=== PATIENT | female | born 1975 | race Caucasian/White ===

== ENCOUNTER 2022-08-24 20:11 | Emergency (ER) | payer SELFPAY ==
[2022-08-24] MEDS ORDERED: MORPHINE 4 MG/ML SYR ONE ×2 (21:03→22:51)
[2022-08-24] MEDS ORDERED: NA CHLORIDE 0.9% 1,000 ML ONE (21:03)
[2022-08-24] MEDS ORDERED: ONDANSETRON 4 MG/2 ML VIAL ONE ×2 (21:03→22:51)
[2022-08-24 21:13] LABS: Urine Blood 2+ (Negative); Urine Glucose Negative (Negative); Urine Protein Negative (Negative); Urine Specific Gravity 1.015 (1.005-1.030); Urine pH 6.5 (5.0-7.0)
[2022-08-24 21:23] LABS: Absolute Lymphocytes (CBC) 1.1 K/uL (0.7-4.9); Hematocrit 36.4 % (36.0-45.0); Lymphocytes % 9.8 % (15.3-44.8); MPV 9.1 fL (7.6-11.3); RBC Red Blood Cell Count 4.39 M/uL (3.86-4.86)
[2022-08-24 21:27] LABS: Urine Specific Gravity/Preg 1.015 (1.005-1.030)
[2022-08-24 21:36] LABS: BUN Blood Urea Nitrogen 12 mg/dL (7-18); Bicarbonate 25 mmol/L (21-32); Glomerular Filtration Rate 77 ml/min (=/>90); Glucose Level 115 mg/dL (74-106); Potassium 3.6 mmol/L (3.5-5.1); Sodium Level 137 mmol/L (136-145)
--- NOTE | 2022-08-24 21:46 | RAD REPORT ---
EXAM DESCRIPTION: US - Transvaginal Study Probe - 08/24/2022 9:36 pm CLINICAL HISTORY: VAGINAL BLEEDING Pelvic pain. COMPARISON: No comparisons FINDINGS: The uterus is normal in size, shape and echotexture. The uterus measures 7.5 x 5.5 x 4.7 c m. 2.6 x 2.7 cm calcified fibroid suspected likely submucosal location in the fundal region. The endometrial stripe measures 5 mm. Both ovaries nonvisualized probably due to excessive bowel gas shadowing. Both adnexa are within normal limits. No significant pelvic ascites. IMPRESSION: Probable calcified fibroid submucosal fundal location. Both ovaries not well seen sonographically due to bowel gas.
[2022-08-24 22:37] LABS: ALT/SGPT 27 U/L (13-56); AST/SGOT 16 U/L (15-37); Alkaline Phosphatase 77 U/L (45-117); Bilirubin Total 0.3 mg/dL (0.2-1.0); Lipase 188 U/L (73-393); Protein, Total 8.2 g/dL (6.4-8.2)
[2022-08-24 22:40] LABS: Bilirubin Direct < 0.1 mg/dL (0-0.2)
--- NOTE | 2022-08-24 23:26 | EDPHYS ---
Physician Documentation [facility] Name: Shamika Alejandra Age: 46 yrs Sex: Female : 1975 Arrival Date: 08/24/2022 Time: 20:12 Bed 2 Private MD: PHILLY Physician Paulino Schneider HPI: 08/24 22:17 This 46 yrs old Female presents to ER via Ambulatory with complaints of andreas Vaginal Bleeding, Abdominal Pain. 22:17 The patient presents with vaginal bleeding that is moderate. Onset: The andreas symptoms/episode began/occurred yesterday. Modifying factors: The symptoms are alleviated by nothing, the symptoms are aggravated by nothing. Associated signs and symptoms: Pertinent positives: cramping. Severity of symptoms: At their worst the symptoms were mild, moderate, in the emergency department the symptoms are unchanged. The patient is sexually active, reportedly has a single partner. The patient has experienced similar episodes in the past, multiple times. 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 - Social history:: Smoking status: Patient reports the use of cigarette tobacco products, denies chronic smoking, but will smoke occasionally. - Family history:: not pertinent. ROS: 22:17 Constitutional: Negative for fever, chills, and weight loss, Eyes: Negative for injury, andreas pain, redness, and discharge, ENT: Negative for injury, pain, and discharge, Neck: Negative for injury, pain, and swelling, Cardiovascular: Negative for chest pain, palpitations, and edema, Respiratory: Negative for shortness of breath, cough, wheezing, and pleuritic chest pain, Back: Negative for injury and pain, : Negative for injury, bleeding, discharge, and swelling, MS/Extremity: Negative for injury and deformity, Skin: Negative for injury, rash, and discoloration, Neuro: Negative for headache, weakness, numbness, tingling, and seizure, Psych: Negative for depression, anxiety, suicide ideation, homicidal ideation, and hallucinations, Allergy/Immunology: Negative for hives, rash, and allergies, Endocrine: Negative for neck swelling, polydipsia, polyuria, polyphagia, and marked weight changes, Hematologic/Lymphatic: Negative for swollen nodes, abnormal bleeding, and unusual bruising. 22:17 Abdomen/GI: Positive for abdominal pain, abdominal cramps, abdominal distension, of the right upper quadrant, left upper quadrant, right lower quadrant and left lower quadrant. Exam: 22:17 Constitutional: This is a well developed, well nourished patient who is awake, alert, andreas and in no acute distress. Head/Face: Normocephalic, atraumatic. Eyes: Pupils equal round and reactive to light, extra-ocular motions intact. Lids and lashes normal. Conjunctiva and sclera are non-icteric and not injected. Cornea within normal limits. Periorbital areas with no swelling, redness, or edema. ENT: Nares patent. No nasal discharge, no septal abnormalities noted. Tympanic membranes are normal and external auditory canals are clear. Oropharynx with no redness, swelling, or masses, exudates, or evidence of obstruction, uvula midline. Mucous membranes moist. Neck: Trachea midline, no thyromegaly or masses palpated, and no cervical lymphadenopathy. Supple, full range of motion without nuchal rigidity, or vertebral point tenderness. No Meningismus. Chest/axilla: Normal chest wall appearance and motion. Nontender with no deformity. No lesions are appreciated. Cardiovascular: Regular rate and rhythm with a normal S1 and S2. No gallops, murmurs, or rubs. Normal PMI, no JVD. No pulse deficits. Respiratory: Lungs have equal breath sounds bilaterally, clear to auscultation and percussion. No rales, rhonchi or wheezes noted. No increased work of breathing, no retractions or nasal flaring. Back: No spinal tenderness. No costovertebral tenderness. Full range of motion. Female : Normal external genitalia. Skin: Warm, dry with normal turgor. Normal color with no rashes, no lesions, and no evidence of cellulitis. MS/ Extremity: Pulses equal, no cyanosis. Neurovascular intact. Full, normal range of motion. Neuro: Awake and alert, GCS 15, oriented to person, place, time, and situation. Cranial nerves II-XII grossly intact. Motor strength 5/5 in all extremities. Sensory grossly intact. Cerebellar exam normal. Normal gait. Psych: Awake, alert, with orientation to person, place and time. Behavior, mood, and affect are within normal limits. 22:17 Abdomen/GI: Inspection: distension, that is mild, that is moderate, Bowel sounds: normal, Palpation: mild abdominal tenderness, in the posterior aspect of right lateral abdomen, posterior aspect of left lateral abdomen, right lower quadrant and left lower quadrant, Liver: no appreciated palpable abnormalities, Hernia: not appreciated. Vital Signs: 20:29 BP 157 / 100; Pulse 105; Resp 20; Temp 99.5; Pulse Ox 100% ; Weight 81.65 kg; Height 5 kr3 ft. 3 in. (160.02 cm); Pain 6/10; 22:09 BP 127 / 74; Pulse 95; Resp 18; Pulse Ox 97% on R/A; as6 23:01 BP 132 / 87; Pulse 89; Resp 20 S; Pulse Ox 97% on R/A; as6 20:29 Body Mass Index 31.89 (81.65 kg, 160.02 cm) kr3 MDM: 20:34 Patient medically screened. [facility] 22:21 Differential diagnosis: kidney stone, menometrorrhagia, menorrhea, nonspecific andreas abdominal pain, ovarian cyst, uterine fibroids, urinary tract infection. Data reviewed: vital signs, nurses notes, lab test result(s), radiologic studies, CT scan, ultrasound. Consideration of Admission/Observation Patient was admitted/placed on observation. Escalation of care including admission/observation considered. I considered the following discharge prescriptions or medication management in the emergency department Medications were administered in the Emergency Department. See MAR. Independent interpretation of the following test(s) in the Emergency Department Radiology Department Ultrasound: My interpretation is calcified fibroid. Test considered but Not performed: EKG: no ekg needed. Care significantly affected by the following chronic conditions: thyroid. 08/24 20:34 Order name: Abo/rh Typing; Complete Time: 21:48 andreas 08/24 20:34 Order name: Basic Metabolic Panel; Complete Time: 23:23 andreas 08/24 20:34 Order name: CBC with Diff; Complete Time: 21:48 andreas 08/24 21:14 Order name: Urine --Ancillary (enter results); Complete Time: 21:48 ds4 08/24 21:14 Order name: Urine Dipstick-Ancillary; Complete Time: 21:25 EDMS 08/24 20:34 Order name: US Transvaginal Study (Probe); Complete Time: 21:48 [facility] 08/24 21:48 Order name: CT Abd/Pelvis - IV Contrast Only [facility] 08/24 22:25 Order name: Liver (Hepatic) Function; Complete Time: 23:23 [facility] 08/24 22:25 Order name: Lipase; Complete Time: 23:23 EDME 08/24 20:34 Order name: IV Saline Lock; Complete Time: 21:13 [facility] 08/24 20:34 Order name: Labs collected and sent; Complete Time: 21:13 [facility] 08/24 20:34 Order name: NPO; Complete Time: 21:15 [facility] 08/24 20:34 Order name: Urine Dipstick-Ancillary (obtain specimen); Complete Time: 21:13 [facility] 08/24 20:34 Order name: Urine Test (obtain specimen); Complete Time: 21:13 [facility] Administered Medications: 21:15 Drug: NS 0.9% 1000 ml Route: IV; Rate: 1 bolus; Site: right forearm; as6 23:36 Follow up: Response: No adverse reaction; IV Status: Completed infusion; IV Intake: as6 1000ml 21:15 Drug: morphine 4 mg Route: IVP; Infused Over: 4 mins; Site: right forearm; as6 23:36 Follow up: Response: No adverse reaction as6 21:15 Drug: Zofran (Ondansetron) 4 mg Route: IVP; Site: right forearm; as6 23:36 Follow up: Response: No adverse reaction as6 22:51 Drug: morphine 4 mg Route: IVP; Infused Over: 4 mins; Site: right forearm; as6 23:36 Follow up: Response: No adverse reaction as6 22:51 Drug: Zofran (Ondansetron) 4 mg Route: IVP; Site: right forearm; as6 23:36 Follow up: Response: No adverse reaction as6 23:38 Drug: Ketorolac 30 mg Route: IVP; Site: right forearm; as6 23:42 Follow up: Response: No adverse reaction as6 Disposition Summary: 08/24/22 23:25 Discharge Ordered Location: Home andreas Problem: new andreas Symptoms: have improved andreas Condition: Stable andreas Diagnosis - Abdominal pain, unspecified andreas - Dysmenorrhea, unspecified andreas - Elevated white blood cell count andreas - Diverticulosis of intestine, part unspecified, without perforation or abscess andreas without bleeding - Leiomyoma of uterus, unspecified andreas Followup: andreas - With: Private Physician - When: 2 - 3 days - Reason: Recheck today's complaints, Continuance of care, Re-evaluation by your physician Followup: andreas - With: - When: 2 - 3 days - Reason: Recheck today's complaints, Re-evaluation by your physician Discharge Instructions: - Discharge Summary Sheet andreas - Abdominal Pain, Adult andreas - Dysmenorrhea andreas - Abdominal Pain, Adult, [id number] andreas - Diverticulosis andreas - Uterine Fibroids andreas - Dysmenorrhea, [id number] andreas - Uterine Fibroids, [id number] [facility] Forms: - Medication Reconciliation Form andreas - Thank You Letter andreas - Antibiotic Education andreas - Prescription Opioid Use andreas - Family Work Release rv1 - Work release form rv1 Prescriptions: - Ibuprofen 600 mg Oral Tablet - take 1 tablet by ORAL route every 6 hours As needed take with food; 20 tablet; [facility] Refills: 0, Product Selection Permitted - Zofran 4 mg Oral Tablet - take 1 tablet by ORAL route every 12 hours As needed; 20 tablet; Refills: 0, andreas Product Selection Permitted - dicyclomine 20 mg Oral Tablet - take 1 tablet by ORAL route 4 times per day; 28 tablet; Refills: 0, Product andreas Selection Permitted - Tylenol-Codeine #3 300 mg-30 mg Oral - take 2 tablet by ORAL route every 6 hours; 18 tablet; Refills: 0, Product andreas Selection Permitted Signatures: Dispatcher [employer] EDMS Paulino Schneider MD MD cha Slawson, Ashby RN RN as6 Maria G Parker RN RN kr3 Sydnee slaughter RN RN pf1 Corrections: (The following items were deleted from the chart) 22:25 22:17 HEPATIC FUNCTION+C.LAB.BRZ ordered. EDMS EDMS 22:25 22:17 LIPASE+C.LAB.BRZ ordered. EDMS EDMS
--- NOTE | 2022-08-24 23:26 | ER ---
Nurse's Notes [facility] Name: Shamika Alejandra Age: 46 yrs Sex: Female : 1975 Arrival Date: 08/24/2022 Time: 20:12 Bed 2 Private MD: Diagnosis: Abdominal pain, unspecified;Dysmenorrhea, unspecified;Elevated white blood cell count;Diverticulosis of intestine, part unspecified, without perforation or abscess without bleeding;Leiomyoma of uterus, unspecified Presentation: 08/24 20:29 Chief complaint: Patient states: started period yesterday and was normal woke up this kr3 morning and the flow was heavy with softball size clots passing. I also had head trauma 7 yrs ago and the area where the trauma was is hurting really bad. Coronavirus screen: Vaccine status: Patient reports being unvaccinated. Ebola Screen: Patient denies travel to an Ebola-affected area in the 21 days before illness onset. Initial Sepsis Screen: Does the patient meet any 2 criteria? No. Patient's initial sepsis screen is negative. Does the patient have a suspected source of infection? No. Patient's initial sepsis screen is negative. Risk Assessment: Do you want to hurt yourself or someone else? Patient reports no desire to harm self or others. Onset of symptoms was August 24, 2022. 20:29 Method Of Arrival: Ambulatory kr3 20:29 Acuity: AMINATA 3 kr3 Triage Assessment: 20:37 General: Appears distressed, uncomfortable, Behavior is cooperative, appropriate for kr3 age, crying. Pain: Complains of pain in abdomen. 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 - Social history:: Smoking status: Patient reports the use of cigarette tobacco products, denies chronic smoking, but will smoke occasionally. - Family history:: not pertinent. Screenin:03 [facility] ED Fall Risk Assessment (Adult) Score/Fall Risk Level 0 - 2 = Low Risk. Abuse as6 screen: Denies threats or abuse. Denies injuries from another. Nutritional screening: No deficits noted. Tuberculosis screening: No symptoms or risk factors identified. Assessment: 21:00 General: Appears uncomfortable, Behavior is cooperative, restless. Pain: Complains of as6 pain in posterior aspect of left lateral abdomen and posterior aspect of right lateral abdomen and left lower quadrant and right lower quadrant and left upper quadrant and right upper quadrant and abdomen. Neuro: Level of Consciousness is awake, alert, obeys commands, Oriented to person, place, time, situation. Cardiovascular: Capillary refill < 3 seconds Patient's skin is warm and dry. Respiratory: Respiratory effort is even, unlabored, Respiratory pattern is regular, symmetrical. GI: Reports lower abdominal pain, upper abdominal pain, nausea. : Reports vaginal bleeding that is bright red, with clots, heavy flow. Derm: Skin is intact, is healthy with good turgor. 23:03 General: pt report pain is slightly improving . as6 Vital Signs: 20:29 BP 157 / 100; Pulse 105; Resp 20; Temp 99.5; Pulse Ox 100% ; Weight 81.65 kg; Height 5 kr3 ft. 3 in. (160.02 cm); Pain 6/10; 22:09 BP 127 / 74; Pulse 95; Resp 18; Pulse Ox 97% on R/A; as6 23:01 BP 132 / 87; Pulse 89; Resp 20 S; Pulse Ox 97% on R/A; as6 20:29 Body Mass Index 31.89 (81.65 kg, 160.02 cm) kr3 ED Course: 20:12 Patient arrived in ED. am2 20:13 Paulino Schneider MD is Attending Physician. [facility] 20:34 Triage completed. kr3 20:37 Patient placed in an exam room, on a stretcher. kr3 20:40 Inserted saline lock: 20 gauge in right forearm, using aseptic technique. Blood as6 collected. 20:43 Lukas Ahn, CARIE is Primary Nurse. as6 21:38 US Transvaginal Study (Probe) In Process Unspecified. EDMS 22:53 CT Abd/Pelvis - IV Contrast Only In Process Unspecified. EDMS 23:03 Placed in gown. Bed in low position. Call light in reach. Side rails up X 1. Adult w/ as6 patient. 23:19 Arm band placed on. as6 23:24 Lakia Bella MD is Referral Physician. andreas 23:42 No provider procedures requiring assistance completed. IV discontinued, intact, as6 bleeding controlled, No redness/swelling at site. Pressure dressing applied. Administered Medications: 21:15 Drug: NS 0.9% 1000 ml Route: IV; Rate: 1 bolus; Site: right forearm; as6 23:36 Follow up: Response: No adverse reaction; IV Status: Completed infusion; IV Intake: as6 1000ml 21:15 Drug: morphine 4 mg Route: IVP; Infused Over: 4 mins; Site: right forearm; as6 23:36 Follow up: Response: No adverse reaction as6 21:15 Drug: Zofran (Ondansetron) 4 mg Route: IVP; Site: right forearm; as6 23:36 Follow up: Response: No adverse reaction as6 22:51 Drug: morphine 4 mg Route: IVP; Infused Over: 4 mins; Site: right forearm; as6 23:36 Follow up: Response: No adverse reaction as6 22:51 Drug: Zofran (Ondansetron) 4 mg Route: IVP; Site: right forearm; as6 23:36 Follow up: Response: No adverse reaction as6 23:38 Drug: Ketorolac 30 mg Route: IVP; Site: right forearm; as6 23:42 Follow up: Response: No adverse reaction as6 Medication: 23:42 VIS not applicable for this client. as6 Intake: 23:36 IV: 1000ml; Total: 1000ml. as6 Outcome: 23:25 Discharge ordered by . [facility] 23:43 Discharged to home ambulatory, with significant other. as6 23:43 Condition: stable 23:43 Discharge instructions given to patient, Instructed on discharge instructions, follow up and referral plans. medication usage, Demonstrated understanding of instructions, follow-up care, medications, Prescriptions given X 4. 23:46 Patient left the ED. as6 Signatures: Dispatcher [employer] Paulino Queen MD MD cha Moreno, Amanda am2 Lukas Ahn, CARIE RN as6 Maria G Parker RN RN kr3
[2022-08-24] MEDS ORDERED: KETOROLAC 30 MG/ML INJ ONE (23:31)
[2022-08-25 00:21] VITALS: TEMP 99.5
[2022-08-25 00:22] VITALS: O2SAT 97
[2022-08-25 00:23] VITALS: BP 132/87
--- NOTE | 2022-08-25 14:44 | RAD REPORT ---
EXAM DESCRIPTION: CT Abdomen and Pelvis With Intravenous Contrast CLINICAL HISTORY: The patient is 46 years old and is Female; Abdominal pain, acute, nonlocalized TECHNIQUE: Axial computed tomography images of the abdomen and pelvis with intravenous contrast. S agittal and coronal reformatted images were created and reviewed. This CT exam was performed using one or more of the following dose reduction techniques: automated exposure control, adjustment of t he mA and/or kV according to patient size, and/or use of iterative reconstruction technique. DLP: 2297 mGy*cm COMPARISON: None. FINDINGS: LUNG BASES: Lung bases are clear. HEART: Visualized heart is normal. MEDIASTINUM: Moderate hiatal hernia. ABDOMEN: LIVER: Hepatic steatosis. Hepatic steatosis. GALLBLADDER AND BILE DUCTS: Unremarkable. No calcified stones. No ductal dilation. PANCREAS: Unremarkable. No mass. No ductal dilation. SPLEEN: Unremarkable. No splenomegaly. ADRENALS: Unremarkable. No mass. KIDNEYS AND URETERS: Left renal cyst measuring 4.5 cm. No follow-up recommended. No hydronephrosis. STOMACH AND BOWEL: Scattered proximal colonic diverticulosis. No acute diverticulitis. No obstruction. PELVIS: APPENDIX: The appendix is seen and is within normal limits. BLADDER: Unremarkable. No mass. REPRODUCTIVE: Unremarkable as visualized. ABDOMEN and PELVIS: INTRAPERITONEAL SPACE: Unremarkable. No free air. No significant fluid collection. BONES/JOINTS: No acute fracture. No dislocation. SOFT TISSUES: Fat-containing umbilical hernia. VASCULATURE: Unremarkable. No abdominal aortic aneurysm. LYMPH NODES: Unremarkable. No enlarged lymph nodes. IMPRESSION: 1. No acute abdominal or pelvic abnormality. 2. Hepatic steatosis. 3. Scattered proximal colonic diverticulosis. No acute diverticulitis. Electronically signed by: Chace Etienne DO 08/24/2022 11:07 PM ENVIRONMENTAL SAMPLING TECHNICIAN Due to temporary technical issues with the PACS/Fluency reporting system, reports are being signed by the in house radiologists without review as a courtesy to insure prompt reporting. The interpreting radiologist is fully responsible for the content of the report.
== END 2022-08-24 23:46 | disposition home or self-care (01) ==
LOC: ER 20:11
DX: R10.9 Unspecified abdominal pain (principal); N94.6 Dysmenorrhea, unspecified; D72.829 Elevated white blood cell count, unspecified; K57.30 Diverticulosis of large intestine without perforation or abscess without bleeding; D25.9 Leiomyoma of uterus, unspecified
CPT/HCPCS: 36415; 74177; 76830; 80048; 80076; 81003; 81025; 83690; 85025; 86900; 86901; 96361; 96374; 96375; 99284; J2405; J7030; Q9967

== ENCOUNTER 2024-11-05 07:05 | Emergency (ER) | payer BC, SELFPAY ==
--- OUTSIDE RECORDS SUMMARY | 2024-11-05 07:08 | XMS REPORT | Continuity of Care Document ---
Author Name Unknown Address [address] [facility] [place]. [address] [place] [address] [facility] Address [address] [facility] [place]. [address] [place] [address] Care Team Providers Care Audio Engineer Name Role Phone Keon Fabianolyubov Primary Care Physician [phone] [email or web address] Attending Clinician Unavaila ble Radiology Attending Clinician Unavailable RADIOLOGY Attending Clinician Unavailable [email or web address]_Kadiyala_S Admitting Clinician Unavaila ble Allergies, Adverse Reactions, Alerts Allergy Name Allergy Type Status Severity Reaction(s) Onset Date Inactive Date Treating Clinician Comments Source NO KNOWN ALLERGIE S Drug Class Active Univers [facility] Social History Social Habit Start Date Stop Date Quantity Comments Source Sex Assigned At 1975 00:00:00 1975 00:00:00 [facility] Smoking Status Start Date Stop Date Source Unknown if ever smoked [facility] Procedures Procedure Date / Time Performed Performing Clinician Source US ABDOMEN COMPLETE 2021-12-11 18:09:00 Requisition, P aper [facility] US PELVIS COMPLETE WITH TRANSVAGINAL 2021-12-11 17:30:00 Requisition, Paper [facility] Encounters Start Date/Time End Date/Time Encounter Type Admission Type Attending Clinicians Care Facility Care Department Encounter ID Source 2024-06-10 14:05:42 2024-06-10 14:05:42 Outpatient [facility] [id number] Rafael Faith 2023-05-15 00:00:00 2023-05-15 00:00:00 Outpatient GC_GCBZW_Ka diyala_S [facility] [id number] [facility] 2023-03-04 13:39:18 2023-03-04 13:39:18 Outpatient [facility] [id number] Rafael Faith 2022-12-04 08:03:56 2022-12-04 08:03:56 Outpatient [facility] [id number] Rafael Faith 2022-11-05 08:53:20 2022-11-05 08:53:20 Outpatient [facility] [id number] Rafael Faith 2021-12-11 11:37:46 2021-12-11 23:59:00 Hospital Encounter Radiology [facility] [id number] [facility] 2021-12-11 11:37:46 2021-12-11 23:59:00 Outpatient R RADIOLOGY [facility] [id number] [facility] 2021-12-11 11:25:00 2021-12-11 11:36:00 Hospital Encounter Radiology [facility] [id number] [facility] Results Test Description Test Time Test Comments Results Result Co mments Source FOLLICLE STIM [id number] 09:29:38* Test Item Value Reference Range Interpretation Comme [facility] FOLLICLE STIM HORMONE (test code = 2700) 3.8 IU/L SEE BELOW EXPECTED VALUES FOR FSH FOR FEMALES >17 YEARS FOLLICULAR 3.5-12.5 IU/L MID-CYCLE PEAK 4.7-21.5 IU/L LUTEAL PHASE 1.7-7.7 IU/L POSTMENOPAUSAL 25.8-134.8 IU/L [id number] 09:29:38* Test Item Value Reference Range Interpretation Comme [facility] FERRITIN (test code = 2075) 21 NG/ML 13-200 VITAMIN B 12 AND FOLIC [id number] 09:29:38* Test Item Value Reference Range Interpretation Comme nts VITAMIN B-12 (test code = 2840) 336 PG/ML 200-950 FOLIC ACID (test code = 2695) 13.4 UG/L SEE BELOW INTERPRETI VE RANGES DEFICIENCY . . . . . . . . . . . . . . . UG/L <4.0 POSSIBLE DEFICIENCY. . . . . . . . . . . UG/L 4.0-5.9 SUFFICIENT . . . . . . . . . . . . . . . UG/L >=6.0 LIPID [id number] 06:50:13* Test Item Value Reference Range Interpretation Comme nts CHOLESTEROL (test code = 2210) 175 MG/DL <200 TRIGLYCERIDES (test code = 2232) 108 MG/DL <150 HDL CHOLESTEROL (test code = 0) 45 MG/DL >39 CALC LDL CHOL (test code = 2237) 108 MG/DL <100 H NOTE: CALCULATED LDL IS BASED ON SOPHIA-BLACK METHOD WHICHINCLUDES ADJUSTABLE TRIGLYCERIDE:VLDL CHOLESTEROL RATIO.THIS FACTOR VARIES BY MEASURED TRIGLYCERIDE AND NON-HDLCHOLESTEROL CONCENTRATIONS WITH INCREASED CALCULATED LDL SEENIN HIGHER TRIGLYCERIDE OR LOWER NON-HDL SPECIMENS. FOR MOREINFORMATION, SEE CLIENT ANNOUNCEMENT AT [email or web address] RATIO LDL/HDL (test code = 2238) 2.40 RATIO <3.22 IRON BINDING CAPACITY AND IRON AND % [id number] 06:50:13* Test Item Value Reference Range Interpretation Comme nts IRON, SERUM (test code = 2222) 36 UG/DL 37-145 L UNSATURATED IBC (test code = 81169) 378 UG/DL 112-347 H CALC TOTAL IBC (test code = 2077) 414 UG/DL 250-450 CALC % IRON SAT (test code = 2079) 9 % 20-50 L [id number] 06:48:54* Test Item Value Reference Range Interpretation Comme nts TRANSFERRIN (test code = 4936) 343 MG/DL 200-360 HEMOGLOBIN [id number] 05:10:00* Test Item Value Reference Range Interpretation Comme nts HEMOGLOBIN A1c (test code = 00397) 5.9 % 4.2-5.6 H [employer]IATION GUIDELINES FOR HGB A1C: PREDIABETES/INCREASED RISK . . . . . . . 5.7-6.4% DIAGNOSIS OF DIABETES . . . . . . . . . >=6.5% WITH CONFIRMATION OR APPROPRIATE SYMPTOMS NOTE: ASSAY MAY BE AFFECTED BY HEMOGLOBINOPATHIES (SICKLE CELL ANEMIA, S-C DISEASE, OTHERS) OR ARTIFICIALLY LOWERED BY DECREASED RED CELL SURVIVAL (HEMOLYTIC ANEMIAS, BLOOD LOSS, ETC.). CONSIDER ALTERNATE TESTING OR LABORATORY CONSULTATION. [facility] has important pathology staff changes effective 09/17/2022. New pathology staff will provide uninterrupted, excellent patient care and clinical consultation. See URL: [email or web address] UNLESS OTHERWISE INDICATED, ALL TESTING PERFORMED AT [facility] [address] [place] [address] FACILITY SECURITY OFFICER: EMEKA VASQUEZ M.D. CLIA NUMBER [id number] [facility] [place] [place]. [id number] CBC W/AUTO DIFF WITH [id number] 04:35:33* Test Item Value Reference Range Interpretation Comme nts WBC (test code = 1001) 7.1 K/UL 3.5-11.0 RBC (test code = 1002) 4.34 M/UL 3.80-5.40 HEMOGLOBIN (test code = 1003) 12.5 G/DL 11.5-15.5 HEMATOCRIT (test code = 1004) 37.3 % 34.0-45.0 MCV (test code = 1005) 85.9 fL 80.0-99.0 MCH (test code = 1006) 28.8 PG 25.0-33.0 MCHC (test code = 1007) 33.5 G/DL 31.0-36.0 RDW (test code = 1038) 14.4 % 11.5-15.0 NEUTROPHILS (test code = 1008) 59.3 % LYMPHOCYTES (test code = 1010) 27.6 % MONOCYTES (test code = 1011) 6.6 % EOSINOPHILS (test code = 1012) 5.4 % BASOPHILS (test code = 1013) 0.7 % IMMATURE GRANULOCYTES (test code = 1036) 0.4 % NUCLEATED RBCS (test code = 1065) 0.0 /100 WBC'S See_Comment [Automated rumr: turn off the lightsa ge] The system which generated this result transmitted reference range: 0.0. The reference range was not used to interpret this result as normal/abnormal. PLATELET COUNT (test code = 1015) 293 K/UL 130-400 ABSOLUTE NEUTROPHILS (test code = 1066) 4.21 K/UL 1.50-7.50 ABSOLUTE LYMPHOCYTES (test code = 1067) 1.96 K/UL 1.00-4.00 ABSOLUTE MONOCYTES (test code = 1068) 0.47 K/UL 0.20-1.00 ABSOLUTE EOSINOPHILS (test code = 1040) 0.38 K/UL 0.00-0.50 ABSOLUTE BASOPHILS (test code = 1069) 0.05 K/UL 0.00-0.20 ABS IMMATURE GRANULOCYTES (test code = 1020) 0.03 K/UL 0.00-0.10 ABS NUCLEATED RBCS (test code = 20752) 0.00 K/UL 0.00-0.11 [id number] 05:57:33* Test Item Value Reference Range Interpretation Comme nts LIPASE (test code = 2058) 43 U/L 13-60 [id number] 05:57:33* Test Item Value Reference Range Interpretation Comme nts AMYLASE (test code = 2204) 20 U/L 28-100 L THYROID II PROFILE (TU,T4,FTI,TSH)2021-12-26 05:41:31* Test Item Value Reference Range Interpretation Comme nts T-UPTAKE (test code = 2817) 30.2 % 24.3-39.0 THYROX. BIND. CAPAC. (test c ode = 52202) 1.1 0.8-1.3 T4 (THYROXINE) (test code = 2819) 6.6 UG/DL 4.5-10.5 CORRECTED T4 (FTI) (test cod e = 2820) 6.0 UG/DL 4.2-11.6 TSH, THIRD GENERATION (test code = 2821) 0.452 UIU/ML 0.400-4.100 COMPREHENSIVE METABOLIC [id number] 05:32:42* Test Item Value Reference Range Interpretation Comme nts GLUCOSE (test code = 2217) 95 MG/DL 70-99 BUN (test code = 2208) 12 MG/DL 6-20 CREATININE (test code = 2214) 0.83 MG/DL 0.60-1.30 eGFR (2020 CKD-EPI) (test code = 71250) 88 ML/MIN/1.73 >60 CALC BUN/CREAT (test code = 2234) 14 RATIO 6-28 SODIUM (test code = 2230) 138 MEQ/L 133-146 POTASSIUM (test code = 2227) 4.2 MEQ/L 3.5-5.4 CHLORIDE (test code = 2214) 103 MEQ/L 95-107 CARBON DIOXIDE (test code = 2205) 25 MEQ/L 19-31 CALCIUM (test code = 2208) 10.0 MG/DL 8.5-10.5 PROTEIN, TOTAL (test code = 2228) 7.0 G/DL 6.1-8.3 ALBUMIN (test code = 2200) 4.3 G/DL 3.5-5.2 CALC GLOBULIN (test code = 2239) 2.7 G/DL 1.9-3.7 CALC A/G RATIO (test code = 2233) 1.6 RATIO 1.0-2.6 BILIRUBIN, TOTAL (test code = 2206) <0.2 MG/DL See_Comment [Automated me ssage] The system which generated this result transmitted reference range: <=1.2. The reference range was not used to interpret this result as normal/abnormal. ALKALINE PHOSPHATASE (test code = 2203) 68 U/L 40-118 AST (test code = 2217) 17 U/L 9-40 ALT (test code = 2218) 23 U/L 5-40 THYROID ANTIBODY GROUP (TPO + TG)2021-12-26 05:06:47* Test Item Value Reference Range Interpretation Comme nts THYROID PEROXIDASE AB (test code = 75916) 78 IU/ML <9 H THYROGLOBULIN AB (test code = 124249) <1 IU/ML <4 UNLESS OTHERWISE INDICATED, ALL TESTING PERFORMED [facility] [address] [place] [address], [place] [address] FACILITY SECURITY OFFICER: TIFFANI MCGOWAN M.D. CLIA NUMBER [id number] [facility] [place]. [id number] HEMOGLOBIN [id number] 03:07:01* Test Item Value Reference Range Interpretation Comme nts HEMOGLOBIN A1c (test code = 77522) 5.8 % 4.2-5.6 H CBC W/AUTO DIFF WITH [id number] 02:43:04* Test Item Value Reference Range Interpretation Comme nts WBC (test code = 1001) 6.1 K/UL 3.5-11.0 RBC (test code = 1002) 4.24 M/UL 3.80-5.40 HEMOGLOBIN (test code = 1003) 10.5 G/DL 11.5-15.5 L HEMATOCRIT (test code = 1004) 32.8 % 34.0-45.0 L MCV (test code = 1005) 77.4 fL 80.0-99.0 L MCH (test code = 1006) 24.8 PG 25.0-33.0 L MCHC (test code = 1007) 32.0 G/DL 31.0-36.0 RDW (test code = 1038) 16.2 % 11.5-15.0 H NEUTROPHILS (test code = 1008) 56.4 % LYMPHOCYTES (test code = 1010) 31.6 % MONOCYTES (test code = 1011) 6.9 % EOSINOPHILS (test code = 1012) 4.0 % BASOPHILS (test code = 1013) 0.8 % IMMATURE GRANULOCYTES (test code = 1036) 0.3 % NUCLEATED RBCS (test code = 1065) 0.0 /100 WBC'S See_Comment [Automated rumr: turn off the lightsa ge] The system which generated this result transmitted reference range: 0.0. The reference range was not used to interpret this result as normal/abnormal. PLATELET COUNT (test code = 1015) 281 K/UL 130-400 ABSOLUTE NEUTROPHILS (test code = 1066) 3.42 K/UL 1.50-7.50 ABSOLUTE LYMPHOCYTES (test code = 1067) 1.92 K/UL 1.00-4.00 ABSOLUTE MONOCYTES (test code = 1068) 0.42 K/UL 0.20-1.00 ABSOLUTE EOSINOPHILS (test code = 1040) 0.24 K/UL 0.00-0.50 ABSOLUTE BASOPHILS (test code = 1069) 0.05 K/UL 0.00-0.20 ABS IMMATURE GRANULOCYTES (test code = 1020) 0.02 K/UL 0.00-0.10 ABS NUCLEATED RBCS (test code = 21587) 0.00 K/UL 0.00-0.11
[2024-11-05 08:08] LABS: Influenza A Ag Negative; Influenza B Ag Negative; SARS-CoV-2 Antigen Rapid Res Negative (Negative)
[2024-11-05] MEDS ORDERED: AZITHROMYCIN 250 MG TAB ONE (08:14)
--- NOTE | 2024-11-05 08:30 | EDPHYS ---
Physician Documentation [facility] Name: Shamika Alejandra Age: 49 yrs Sex: Female : 1975 Arrival Date: 11/05/2024 Time: 07:05 Bed 5 Private MD: PHILLY Physician Paulino Schnieder HPI: 11/05 07:47 This 49 yrs old Female presents to ER via Ambulatory with complaints of andreas Headache, Congestion, BODY ACHES, Cough. 07:47 The patient complains of pain to the top of head, forehead, left frontal area and right andreas frontal area. The patient describes the headache as aching, constant. Onset: The symptoms/episode began/occurred 2 day(s) ago. Associated signs and symptoms: Pertinent positives: sinus congestion. Severity of symptoms: At its worst the pain was moderate. Headache History: The patient has had previous headaches and this one is similar to previous episodes. The symptoms are alleviated by nothing. the symptoms are aggravated by lights, movement, noise. The patient has experienced similar episodes in the past, several times. 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 - Infectious Disease History:: Denies. - Social history:: Smoking status: Patient denies any tobacco usage or history of. ROS: 07:48 Eyes: Negative for injury, pain, redness, and discharge, ENT: Negative for injury, andreas pain, and discharge, Neck: Negative for injury, pain, and swelling, Cardiovascular: Negative for chest pain, palpitations, and edema, Abdomen/GI: Negative for abdominal pain, nausea, vomiting, diarrhea, and constipation, Back: Negative for injury and pain, : Negative for injury, bleeding, discharge, and swelling, MS/Extremity: Negative for injury and deformity, Skin: Negative for injury, rash, and discoloration, Neuro: Negative for headache, weakness, numbness, tingling, and seizure, Psych: Negative for depression, anxiety, suicide ideation, homicidal ideation, and hallucinations, Allergy/Immunology: Negative for hives, rash, and allergies, Endocrine: Negative for neck swelling, polydipsia, polyuria, polyphagia, and marked weight changes, 07:48 Constitutional: Positive for body aches, chills, fatigue, fever, malaise, poor PO intake, 07:48 Respiratory: Positive for cough, "sounds productive", Exam: 07:48 Head/Face: Normocephalic, atraumatic. Eyes: Pupils equal round and reactive to light, andreas extra-ocular motions intact. Lids and lashes normal. Conjunctiva and sclera are non-icteric and not injected. Cornea within normal limits. Periorbital areas with no swelling, redness, or edema. ENT: Nares patent. No nasal discharge, no septal abnormalities noted. Tympanic membranes are normal and external auditory canals are clear. Oropharynx with no redness, swelling, or masses, exudates, or evidence of obstruction, uvula midline. Mucous membranes moist. Neck: Trachea midline, no thyromegaly or masses palpated, and no cervical lymphadenopathy. Supple, full range of motion without nuchal rigidity, or vertebral point tenderness. No Meningismus. Chest/axilla: Normal chest wall appearance and motion. Nontender with no deformity. No lesions are appreciated. Cardiovascular: Regular rate and rhythm with a normal S1 and S2. No gallops, murmurs, or rubs. Normal PMI, no JVD. No pulse deficits. Respiratory: Lungs have equal breath sounds bilaterally, clear to auscultation and percussion. No rales, rhonchi or wheezes noted. No increased work of breathing, no retractions or nasal flaring. Back: No spinal tenderness. No costovertebral tenderness. Full range of motion. Skin: Warm, dry with normal turgor. Normal color with no rashes, no lesions, and no evidence of cellulitis. MS/ Extremity: Pulses equal, no cyanosis. Neurovascular intact. Full, normal range of motion., bilateral aka Neuro: Awake and alert, GCS 15, oriented to person, place, time, and situation. Cranial nerves II-XII grossly intact. Motor strength 5/5 in all extremities. Sensory grossly intact. Cerebellar exam normal. Normal gait. 07:48 Constitutional: The patient appears well developed, well hydrated, 07:48 ENT: Posterior pharynx: Airway: normal, no evidence of obstruction, Tonsils: are normal in appearance, Uvula: normal, swelling, is not appreciated, Vital Signs: 07:25 BP 176 / 107; Pulse 97; Resp 17; Temp 99.9; Pulse Ox 97% on R/A; Weight 95.25 kg; ll1 Height 5 ft. 4 in. ; Pain 10/10; 07:43 BP 166 / 107; Pulse 92; Resp 16; Pulse Ox 97% on R/A; ll1 08:40 BP 166 / 97; Pulse 97; Resp 16; Pulse Ox 100% ; ll1 07:25 Body Mass Index 36.05 (95.25 kg, 162.56 cm) ll1 07:25 Pain Scale: Adult ll1 Mita Coma Score: 07:53 Eye Response: spontaneous(4). Motor Response: obeys commands(6). Verbal Response: [facility] oriented(5). Total: 15. MDM: 07:17 Medical Screening Exam initiated [facility] 07:53 Antibiotic administration: The patient is discharged and will get outpatient [facility] antibiotics, Zithromax. Differential diagnosis: obstructed airway, tracheal injury, bronchitis, flu, URI, migraine, tension headache. Differential Diagnosis: Obstructed Airway Bronchitis Influenza Upper Respiratory Infection Sinusitis Viral Syndrome Pneumonia. Data reviewed: vital signs, nurses notes, lab test result(s). Consideration of Admission/Observation Escalation of care including admission/observation considered. I considered the following discharge prescriptions or medication management in the emergency department Medications were administered in the Emergency Department. See MAR. Test considered but Not performed: Labs: cbc , comp pt refused. Historians other than the Patient: pt well informed. Care significantly affected by the following chronic conditions: hypothyroid. 11/05 07:20 Order name: COVID-19 Ag + Flu A+B Ag [facility] 11/05 07:20 Order name: Group A Streptococcus Rapid [facility] 11/05 08:04 Order name: Throat Culture [facility] 11/05 07:53 Order name: PO challenge; Complete Time: 08:11 [facility] Administered Medications: 07:35 Not Given (Patient Refused): ns 0.9% 1000 ml IV at 1000 ml once; to be given as a bolus ll1 over 60 minutes 07:35 Not Given (Patient Refused): [id number] mg IVP once ll1 07:35 Not Given (Patient Refused): ondansetron 4 mg IVP once; over 2 minutes ll1 08:11 Not Given (Patient Refused): [id number] mg PO once ll1 08:17 Drug: AZITHromycin PO 500 mg PO once Route: PO; ll1 08:40 Follow up: Response: No adverse reaction ll1 Disposition Summary: 11/05/24 08:29 Discharge Ordered Notes: Location: Home [facility] Problem: new [facility] Symptoms: have improved andreas Condition: Stable andreas Diagnosis - Acute upper respiratory infection, unspecified andreas - Fever, unspecified andreas Followup: andreas - With: Private Physician - When: 2 - 3 days - Reason: Recheck today's complaints, Continuance of care, Re-evaluation by your physician Discharge Instructions: - Fever, Adult andreas - Cool Mist Vaporizer andreas - Upper Respiratory Infection, Adult, Ctre-pa-Ezza andreas - Cough, Adult, Rbsw-wi-Wkem andreas - Cough, Adult andreas - Discharge Summary Sheet 1 Forms: - Medication Reconciliation Form [facility] - Antibiotic Education [facility] - Prescription Opioid Use [facility] - Patient Portal Instructions [facility] - Leadership Thank You Letter [facility] - Work release form 1 Prescriptions: - Stephenie-D 12 Hour 60-120 mg Oral Tablet Sustained Release 12 hr - take 1 tablet ORAL route every 12 hours As needed; 20 tablet; Refills: 0, [facility] Product Selection Permitted - Tessalon Perles 100 mg Oral capsule - take 2 capsule ORAL route every 8 hours As needed; 30 capsule; Refills: 0, [facility] Product Selection Permitted - Medrol (Freddy) 4 mg Oral Tablets, Dose Pack - take 1 tablet ORAL route as directed - follow package instructions; 1 packet; andreas Refills: 0, Product Selection Permitted - Zithromax 500 mg Oral Tablet - take 1 tablet ORAL route once daily for 5 days; 5 tablet; Refills: 0, Product [facility] Selection Permitted Signatures: Dispatcher [employer] Paulino Queen MD MD cha Lewis, Lynsay, RN RN ll1
--- NOTE | 2024-11-05 08:30 | ER ---
Nurse's Notes [facility] Name: Shamika Alejandra Age: 49 yrs Sex: Female : 1975 Arrival Date: 11/05/2024 Time: 07:05 Bed 5 Private MD: Diagnosis: Acute upper respiratory infection, unspecified;Fever, unspecified Presentation: 11/05 07:25 Chief complaint: Patient states: GAGE, cough, congestion, body aches, fever, nausea since ll1 Thursday. Coronavirus screen: Client denies travel out of the [place] in the last 14 days. congestion, cough unrelated to allergies, fatigue, fever, headache, muscle pain, nausea, shortness of breath, sore throat, Client presents with at least one sign or symptom that may indicate coronavirus-19. Standard/surgical mask placed on the client. Ebola Screen: Patient denies travel to an Ebola-affected area in the 21 days before illness onset. Initial Sepsis Screen: Does the patient meet any 2 criteria? No. Patient's initial sepsis screen is negative. Does the patient have a suspected source of infection? No. Patient's initial sepsis screen is negative. Risk Assessment: Do you want to hurt yourself or someone else? Patient reports no desire to harm self or others. Onset of symptoms was October 30, 2024. 07:25 Method Of Arrival: Ambulatory ll1 07:25 Acuity: AMINATA 4 ll1 Triage Assessment: 07:43 Headache History: Denies prior headaches. General: Appears uncomfortable, Behavior is ll1 calm, cooperative, appropriate for age. 08:41 Pain: Pain began 6 days ago Also complains of no other associated symptoms. 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 - Infectious Disease History:: Denies. - Social history:: Smoking status: Patient denies any tobacco usage or history of. Screenin:27 [facility] ED Fall Risk Assessment (Adult) History of falling in the last 3 months, ll1 including since admission No falls in past 3 months (0 pts) Confusion or Disorientation No (0 pts) Intoxicated or Sedated No (0 pts) Impaired Gait No (0 pts) Mobility Assist Device Used No (0 pt) Altered Elimination No (0 pt) Score/Fall Risk Level 0 - 2 = Low Risk Maintained a safe environment, Hourly rounding (assess needs \T\ fall precautionary measures) done. Abuse screen: Denies threats or abuse. Nutritional screening: No deficits noted. Tuberculosis screening: No symptoms or risk factors identified. Assessment: 07:27 General: Appears uncomfortable, Behavior is calm, cooperative, appropriate for age, ll1 Reports chills for fever for feeling ill for fatigue for. Pain: Complains of pain in head Pain currently is 10 out of 10 on a pain scale. Quality of pain is described as aching. Neuro: Reports headache weakness. Respiratory: Reports cough that is. GI: Reports nausea. EENT: Reports nasal congestion pain when swallowing. Musculoskeletal: Reports body aches. Vital Signs: 07:25 BP 176 / 107; Pulse 97; Resp 17; Temp 99.9; Pulse Ox 97% on R/A; Weight 95.25 kg; ll1 Height 5 ft. 4 in. ; Pain 10/10; 07:43 BP 166 / 107; Pulse 92; Resp 16; Pulse Ox 97% on R/A; ll1 08:40 BP 166 / 97; Pulse 97; Resp 16; Pulse Ox 100% ; ll1 07:25 Body Mass Index 36.05 (95.25 kg, 162.56 cm) ll1 07:25 Pain Scale: Adult ll1 Mita Coma Score: 07:53 Eye Response: spontaneous(4). Motor Response: obeys commands(6). Verbal Response: andreas oriented(5). Total: 15. ED Course: 07:08 Patient arrived in ED. [email or web address] 07:17 Paulino Schneider MD is Attending Physician. andreas 07:25 Merissa Fields RN is Primary Nurse. ll1 07:25 Arm band placed on Patient placed in an exam room, on a stretcher. ll1 07:27 Triage completed. ll1 07:28 Patient has correct armband on for positive identification. Bed in low position. Call 1 light in reach. Provided Education on: ER procedures and process. 07:35 COVID-19 Ag + Flu A+B Ag Sent. ll1 07:35 Group A Streptococcus Rapid Sent. ll1 07:42 Warm blanket given. ll1 08:40 No provider procedures requiring assistance completed. IV discontinued, intact, ll1 bleeding controlled, No redness/swelling at site. Pressure dressing applied. Administered Medications: 07:35 Not Given (Patient Refused): ns 0.9% 1000 ml IV at 1000 ml once; to be given as a bolus ll1 over 60 minutes 07:35 Not Given (Patient Refused): [id number] mg IVP once ll1 07:35 Not Given (Patient Refused): ondansetron 4 mg IVP once; over 2 minutes ll1 08:11 Not Given (Patient Refused): [id number] mg PO once ll1 08:17 Drug: AZITHromycin PO 500 mg PO once Route: PO; ll1 08:40 Follow up: Response: No adverse reaction ll1 Medication: 07:28 VIS not applicable for this client. ll1 Outcome: 08:29 Discharge ordered by . [facility] 08:40 Patient left the ED. ll1 08:41 Discharged to home ambulatory, ll1 08:41 Condition: stable 08:41 Discharge instructions given to patient, Instructed on discharge instructions, follow up and referral plans. medication usage, Demonstrated understanding of instructions, follow-up care, medications, Prescriptions given X 4, Signatures: Paulino Schneider MD MD cha Lewis, Lynsay, RN RN 1 Lupis Lopez6 Corrections: (The following items were deleted from the chart) 09:24 08:41 BP 166 / 97; Pulse 97bpm; Resp 16bpm; Pulse Ox 100%; ll1 ll1
[2024-11-05 08:49] VITALS: O2SAT 97
[2024-11-05 08:51] VITALS: BP 176/107; TEMP 99.9
== END 2024-11-05 08:40 | disposition home or self-care (01) ==
LOC: ER 07:05
DX: J06.9 Acute upper respiratory infection, unspecified (principal); Z11.52 Encounter for screening for COVID-19
CPT/HCPCS: 36415; 87070; 87428; 99284

== ENCOUNTER 2025-03-09 10:27 | Emergency (ER) | payer BC ==
--- OUTSIDE RECORDS SUMMARY | 2025-03-09 10:30 | XMS REPORT | Continuity of Care Document ---
Author Name Unknown Address [address] [place] [address] Organization [facility] Address [address] [facility] [address] [place] [address] Care Team Providers Care Rug Measurer Name Role Phone Jesús Herbert Primary Care Physician [phone] Radiology Attending Clinician Unavailable RADIOLOGY Attending Clinician Unavailable Allergies, Adverse Reactions, Alerts Allergy Name Allergy Type Status Severity Reaction(s) Onset Date Inactive Date Treating Clinician Comments Source NO KNOWN ALLERGIE S Drug Class Active [facility] Social History Social Habit Start Date Stop Date Quantity Comments Source Sex Assigned At 1975 00:00:00 1975 00:00:00 [facility] Smoking Status Start Date Stop Date Source Unknown if ever smoked [facility] Procedures Procedure Date / Time Performed Performing Clinician Source US ABDOMEN COMPLETE 2021-12-11 18:09:00 Requisition, P aper [facility] US PELVIS COMPLETE WITH TRANSVAGINAL 2021-12-11 17:30:00 Requisition, Paper [facility] Encounters Start Date/Time End Date/Time Encounter Type Admission Type Attending Clinicians Care Facility Care Department Encounter ID Source 2024-12-08 09:57:00 2024-12-08 09:57:00 Outpatient [facility] [id number] Rafael Juliette Marcell 2024-06-10 14:05:42 2024-06-10 14:05:42 Outpatient [facility] [id number] Rafael Faith 2023-03-04 13:39:18 2023-03-04 13:39:18 Outpatient [facility]FA [id number] Rafael Faith 2022-12-04 08:03:56 2022-12-04 08:03:56 Outpatient [facility] [id number] Rafael Faith 2022-11-05 08:53:20 2022-11-05 08:53:20 Outpatient [facility] [id number] Rafael Faith 2021-12-11 11:37:46 2021-12-11 23:59:00 Hospital Encounter Radiology [facility] [id number] [facility] 2021-12-11 11:37:46 2021-12-11 23:59:00 Outpatient R RADIOLOGY [facility] [id number] [facility] 2021-12-11 11:25:00 2021-12-11 11:36:00 Hospital Encounter Radiology [facility] [id number] [facility] Results Test Description Test Time Test Comments Results Result Co mments Source FOLLICLE STIM [id number] 09:29:38* Test Item Value Reference Range Interpretation Comme [facility] FOLLICLE STIM HORMONE (test code = 2700) 3.8 IU/L SEE BELOW EXPECTED VALUES FOR FSH FOR FEMALES >17 YEARS FOLLICULAR 3.5-12.5 IU/L MID-CYCLE PEAK 4.7-21.5 IU/L LUTEAL PHASE 1.7-7.7 IU/L POSTMENOPAUSAL 25.8-134.8 IU/L [id number] 09:29:38* Test Item Value Reference Range Interpretation Comme [facility] FERRITIN (test code = 2075) 21 NG/ML 13-200 VITAMIN B 12 AND FOLIC [id number] 09:29:38* Test Item Value Reference Range Interpretation Comme [facility] VITAMIN B-12 (test code = 2840) 336 [...] . . . . UG/L >=6.0 LIPID [id number] 06:50:13* Test Item Value Reference Range Interpretation Comme nts CHOLESTEROL (test code = 2210) 175 MG/DL <200 TRIGLYCERIDES (test code = 2232) 108 MG/DL <150 HDL CHOLESTEROL (test code = 2220) 45 MG/DL >39 CALC LDL CHOL (test code = 2237) 108 MG/DL <100 H NOTE: CALCULATED LDL IS BASED ON SOPHIA-BLACK METHOD WHICHINCLUDES ADJUSTABLE TRIGLYCERIDE:VLDL CHOLESTEROL RATIO.THIS FACTOR VARIES BY MEASURED TRIGLYCERIDE AND NON-HDLCHOLESTEROL CONCENTRATIONS WITH INCREASED CALCULATED LDL SEENIN HIGHER TRIGLYCERIDE OR LOWER NON-HDL SPECIMENS. FOR MOREINFORMATION, SEE CLIENT ANNOUNCEMENT AT [email or web address] [email or web address] LDL/HDL (test code = 2238) 2.40 RATIO <3.22 IRON BINDING CAPACITY AND IRON AND % [id number] 06:50:13* Test Item Value Reference Range Interpretation Comme nts IRON, SERUM (test code = 2222) 36 UG/DL 37-145 L UNSATURATED IBC (test code = 64206) 378 UG/DL 112-347 H CALC TOTAL IBC (test code = 2077) 414 UG/DL 250-450 CALC % IRON SAT (test code = 2079) 9 % 20-50 L [id number] 06:48:54* Test Item Value Reference Range Interpretation Comme nts TRANSFERRIN (test code = 4936) 343 MG/DL 200-360 HEMOGLOBIN [id number] 05:10:00* Test Item Value Reference Range Interpretation Comme nts HEMOGLOBIN A1c (test code = 87743) 5.9 % 4.2-5.6 H [employer] GUIDELINES FOR HGB A1C: [...] ETC.). CONSIDER ALTERNATE TESTING OR LABORATORY CONSULTATION. [facility] has important pathology staff changes effective 09/17/2022. New pathology staff will provide uninterrupted, excellent patient care and clinical consultation. See URL: [email or web address]. UNLESS OTHERWISE INDICATED, ALL TESTING PERFORMED AT [facility] [address] [place] [address] MANAGER OF CREATIVE SERVICES: EMEKA VASQUEZ M.D. CLIA NUMBER [id number] [facility] [place]. [id number] CBC W/AUTO DIFF WITH [id number] 04:35:33* Test Item Value Reference Range Interpretation [...] = 1065) 0.0 /100 WBC'S See_Comment [Automated messa ge] The system which generated this result [...] 0.00-0.10 ABS NUCLEATED RBCS (test code = 25101) 0.00 K/UL 0.00-0.11 [id number] 05:57:33* Test Item Value Reference Range Interpretation Comme nts LIPASE (test code = 2058) 43 U/L 13-60 [id number] 05:57:33* Test Item Value Reference Range Interpretation Comme nts AMYLASE (test code = 2204) 20 U/L 28-100 L THYROID II PROFILE (TU,T4,FTI,TSH)2021-12-26 05:41:31* Test Item Value Reference Range Interpretation Comme nts T-UPTAKE (test code = 2817) 30.2 % 24.3-39.0 THYROX. BIND. CAPAC. (test c ode = 45187) 1.1 0.8-1.3 T4 (THYROXINE) (test code = 2819) 6.6 UG/DL 4.5-10.5 CORRECTED T4 (FTI) (test cod e = 2820) 6.0 UG/DL 4.2-11.6 TSH, THIRD GENERATION (test code = 2821) 0.452 UIU/ML 0.400-4.100 COMPREHENSIVE METABOLIC [id number] 05:32:42* Test Item Value Reference Range Interpretation Comme nts GLUCOSE (test code = 2217) 95 MG/DL 70-99 BUN (test code = 8) 12 MG/DL 6-20 CREATININE (test code = 2214) 0.83 MG/DL 0.60-1.30 eGFR (2020 CKD-EPI) (test code = 48569) 88 ML/MIN/1.73 >60 CALC BUN/CREAT (test code = 2235) 14 RATIO 6-28 SODIUM (test code = 2231) 138 MEQ/L 133-146 POTASSIUM (test code = 2227) 4.2 MEQ/L 3.5-5.4 CHLORIDE (test code = 5) 103 MEQ/L 95-107 CARBON DIOXIDE (test code = 2205) 25 MEQ/L 19-31 CALCIUM (test code = 2208) 10.0 MG/DL 8.5-10.5 PROTEIN, TOTAL (test code = 2228) 7.0 G/DL 6.1-8.3 ALBUMIN (test code = 2200) 4.3 G/DL 3.5-5.2 CALC GLOBULIN (test code = 0) 2.7 G/DL 1.9-3.7 CALC A/G RATIO (test [...] nts THYROID PEROXIDASE AB (test code = 74242) 78 IU/ML <9 H THYROGLOBULIN AB (test code = 497386) <1 IU/ML <4 UNLESS OTHERWISE INDICATED, ALL TESTING PERFORMED [facility] [address] [place] [address] MANAGER OF CREATIVE SERVICES: TIFFANI MCGOWAN M.D. CLIA NUMBER [id number] [facility] [place]. [id number] HEMOGLOBIN [id number] 03:07:01* Test Item Value Reference Range Interpretation Comme nts HEMOGLOBIN A1c (test code = 57631) 5.8 % 4.2-5.6 H CBC W/AUTO DIFF WITH [id number] 02:43:04* Test Item Value Reference Range Interpretation [...] = 1065) 0.0 /100 WBC'S See_Comment [Automated Nuevoraa ge] The system which generated this result [...] 0.00-0.10 ABS NUCLEATED RBCS (test code = 57081) 0.00 K/UL 0.00-0.11
[2025-03-09] MEDS ORDERED: METOCLOPRAMIDE 10 MG/2mL INJ ONE (11:20)
[2025-03-09] MEDS ORDERED: HYDRALAZINE HCL 20 MG/ML VIAL ONE (11:20)
[2025-03-09] MEDS ORDERED: NA CHLORIDE 0.9% 1,000 ML ONE (11:20)
[2025-03-09] MEDS ORDERED: DIPHENHYDRAMINE 50 MG/ML VIAL ONE (11:20)
--- NOTE | 2025-03-09 11:52 | RAD REPORT ---
Procedure: Chest Single View HISTORY: Chest pain COMPARISON: none FINDINGS: The lungs appear clear of acute infiltrate. No significant pleural effusion noted. The heart is normal size. IMPRESSION: No acute abnormality is displayed.
--- NOTE | 2025-03-09 11:55 | RAD REPORT ---
EXAM: CT brain without contrast HISTORY: Headache COMPARISON: None TECHNIQUE: Multiple contiguous axial images were obtained and a CT of the brain without contrast.. Sagittal and coronal reconstruction performed. Automated exposure control, adjustment of the mA and/or kV according to patient size, and/or iterative reconstruction. Unless otherwise specified, incidental f indings do not require dedicated imaging follow-up FINDINGS: An intracranial bleed is not seen Ventricles are normal caliber No extra-axial fluid collection noted No significant hypodensity within the brain No fluid within the visualized sinuses or mastoids noted. IMPRESSION: No acute intracranial abnormality noted. If the patient continues to have symptoms to suggest an acute intracranial abnormality then MRI of th e brain would be recommended.
[2025-03-09 11:58] LABS: PT Prothrombin Time 12.3 SECONDS (10-13.0); PTT, Activated Partial Thromb 25.7 SECONDS (27.2-37.4); Protime INR 1.09
[2025-03-09] MEDS ORDERED: KETOROLAC 30 MG/ML INJ ONE (12:06)
[2025-03-09 12:10] LABS: ALT/SGPT 36 U/L (13-56); AST/SGOT 19 U/L (15-37); Albumin 3.7 g/dL (3.4-5.0); Albumin/Globulin Ratio 1.0 (1.1-1.8); Alkaline Phosphatase 76 U/L (45-117); Anion Gap 9.4 mEq/L (5.0-15.0); BUN Blood Urea Nitrogen 13 mg/dL (7-18); Globulin 3.7 g/dL (2.3-3.5); Glucose Level 110 mg/dL (74-106); Magnesium 2.4 mg/dL (1.6-2.4); Potassium 3.4 mEq/L (3.5-5.1); Troponin High Sensitivity 5.6 pg/mL (<58.9)
[2025-03-09 12:11] LABS: METHAMPHETAM NEGATIVE (NEGATIVE); THC Cannibis NEGATIVE (NEGATIVE)
[2025-03-09 12:13] LABS: Bilirubin Indirect, Calculated 0.1 mg/dL (0.2-0.8)
[2025-03-09 13:22] LABS: Absolute Lymphocytes (CBC) 1.3 K/uL (0.7-4.9); Hematocrit 35.6 % (36.0-45.0); Hemoglobin 11.4 g/dL (12.0-15.0); MCH 25.3 pg (27.0-35.0); MCHC 32.0 g/dL (32.0-36.0); MCV 79.0 fL (80-100); MPV 9.6 fL (7.6-11.3); Nucleated RBC Absolute Count 0.0 (0-0); Nucleated Red Blood Cells % 0.0 % (0-0); RBC Red Blood Cell Count 4.51 M/uL (3.86-4.86); White Blood Count 8.50 thou/uL (4.3-10.9)
--- NOTE | 2025-03-09 13:59 | ER ---
Nurse's Notes [facility] Name: Shamika Alejandra Age: 49 yrs Sex: Female : 1975 Arrival Date: 03/09/2025 Time: 10:27 Bed 15 Private MD: Diagnosis: Migraine without aura, not intractable;Elevated blood-pressure reading, without diagnosis of hypertension Presentation: 03/09 10:43 Chief complaint: Patient states: Headache that began 2 days ago. Coronavirus screen: ss Client denies travel out of the [place] in the last 14 days. Ebola Screen: Patient denies exposure to infectious person. Patient denies travel to an Ebola-affected area in the 21 days before illness onset. Initial Sepsis Screen: Does the patient meet any 2 criteria? No. Patient's initial sepsis screen is negative. Does the patient have a suspected source of infection? No. Patient's initial sepsis screen is negative. Risk Assessment: Do you want to hurt yourself or someone else? Patient reports no desire to harm self or others. Onset of symptoms was March 07, 2025. 10:43 Method Of Arrival: Wheelchair 10:43 Acuity: AMINATA 2 ss OPERATIONS SUPPORT MANAGER: 10:44 LMP 02/23/2025, unknown ss Historical: - Allergies: 10:44 Morphine; ss - Home Meds: 10:44 None [Active]; ss - PMHx: 10:44 Mary; Graves disease; ss - PSHx: 10:44 Ligation of fallopian tube; ss - Immunization history:: Adult Immunizations up to date. - Infectious Disease History:: Denies. - Social history:: Smoking status: Patient denies any tobacco usage or history of. Screenin:05 [facility] ED Fall Risk Assessment (Adult) History of falling in the last 3 months, me1 including since admission No falls in past 3 months (0 pts) Confusion or Disorientation No (0 pts) Intoxicated or Sedated No (0 pts) Impaired Gait No (0 pts) Mobility Assist Device Used No (0 pt) Altered Elimination No (0 pt) Score/Fall Risk Level 0 - 2 = Low Risk Maintained a safe environment, Provided non-skid footwear, Hourly rounding (assess needs \T\ fall precautionary measures) done. Abuse screen: Denies threats or abuse. Nutritional screening: No deficits noted. Tuberculosis screening: No symptoms or risk factors identified. Assessment: 11:05 General: Appears uncomfortable, ill, Behavior is calm, cooperative, appropriate for me1 age, Reports GAGE x 2 days with n/v and sensitivity to light. Reports palpitations today. Pain: Complains of pain in head Pain does not radiate. Pain currently is 10 out of 10 on a pain scale. Quality of pain is described as aching, throbbing, Pain began 2-3 days ago. Is continuous. Neuro: Level of Consciousness is awake, alert, obeys commands, Oriented to person, place, time, situation, Appropriate for age. Neuro: Reports headache. Cardiovascular: Reports palpitations, Patient's skin is warm and dry. Respiratory: Airway is patent Respiratory effort is even, unlabored, Respiratory pattern is regular, symmetrical. GI: Reports nausea, vomiting, since 2 days ago. : No signs and/or symptoms were reported regarding the genitourinary system. EENT: No signs and/or symptoms were reported regarding the EENT system. Derm: Skin is intact, is healthy with good turgor, Skin is normal. Musculoskeletal: Circulation, motion, and sensation intact. Range of motion: intact in all extremities. 12:00 General: Appears uncomfortable, Behavior is calm, cooperative, appropriate for age. rg5 Pain: Complains of pain in head. 12:00 Neuro: Reports headache. Neuro: Level of Consciousness is awake, alert, obeys commands, rg5 Oriented to person, place, time, situation, Appropriate for age. Cardiovascular: Reports nausea, palpitations. GI: Reports nausea, vomiting. 13:00 Reassessment: No changes from previously documented assessment. Patient and/or family rg5 updated on plan of care and expected duration. Pain level reassessed. Patient is alert, oriented x 3, equal unlabored respirations, skin warm/dry/pink. 14:00 Reassessment: Patient and/or family updated on plan of care and expected duration. Pain rg5 level reassessed. Patient is alert, oriented x 3, equal unlabored respirations, skin warm/dry/pink. Patient states symptoms have improved. Vital Signs: 10:43 BP 181 / 114; Pulse 78; Resp 16; Temp 97.9(O); Pulse Ox 100% on R/A; Weight 93.89 kg; ss Height 5 ft. 3 in. ; Pain 10/10; 11:45 BP 206 / 124; Pulse 85; Pulse Ox 97% ; Pain 7/10; rg5 12:00 BP 173 / 90; Pulse 80; Pulse Ox 98% ; rg5 13:32 BP 131 / 102; Pulse 81; Resp 18; Pulse Ox 100% ; rg5 14:00 BP 151 / 100; Pulse 94; Resp 18; Pulse Ox 98% ; rg5 10:43 Body Mass Index 36.67 (93.89 kg, 160.02 cm) ss 10:43 Pain Scale: Adult ss 11:45 Pain Scale: Adult rg5 [place] Coma Score: 11:08 Eye Response: spontaneous(4). Motor Response: obeys commands(6). Verbal Response: sb4 oriented(5). Total: 15. ED Course: 10:29 Patient arrived in ED. im 10:30 Jordana Solorio PA-C is PHCP. sb4 10:30 Paulino Schneider MD is Attending Physician. sb4 10:44 Triage completed. ss 10:44 Arm band placed on right wrist. ss 11:03 Rebeca Aviles, CARIE is Primary Nurse. me1 11:05 Patient has correct armband on for positive identification. Bed in low position. Call me1 light in reach. Side rails up X2. Provided Education on: POC. Verbalized understanding.. 11:05 No provider procedures requiring assistance completed. Missed attempt(s): 22 gauge in me1 right antecubital area. 11:05 Missed attempt(s): 22 gauge in right forearm. me1 11:29 Inserted saline lock: 22 gauge in left forearm, using aseptic technique. me1 11:34 CT Head Brain wo Cont In Process Unspecified. EDMS 11:36 Chest Single View XRAY In Process Unspecified. EDMS 11:59 EKG done, by rad tech. ts3 14:24 IV discontinued, bleeding controlled, No redness/swelling at site. Pressure dressing rg5 applied. Administered Medications: 11:49 Drug: NS 0.9% IV 1000 ml IV at 1000 ml once; to be given as a bolus over 60 minutes rg5 Route: IV; Rate: 1000 ml; Site: left forearm; 13:00 Follow up: IV Status: Completed infusion; IV Intake: 1000ml rg5 11:49 Drug: hydrALAZINE IVP 10 mg IVP once Route: IVP; Site: left forearm; rg5 14:14 Follow up: Response: No adverse reaction; Blood pressure is lowered rg5 11:49 Drug: diphenhydrAMINE IVP 25 mg IVP once Route: IVP; Site: left forearm; rg5 14:14 Follow up: Response: No adverse reaction rg5 11:49 Drug: metoCLOPramide IVP 10 mg IVP once; over 1 to 2 minutes Route: IVP; Site: left rg5 forearm; 14:14 Follow up: Response: No adverse reaction rg5 12:06 CANCELLED (Physician Discretion): [id number] mg IV at calculated rate once sb4 12:06 CANCELLED (Physician Discretion): clonidine0.2 mg PO once sb4 12:15 Drug: Ketorolac IVP 15 mg IVP once Route: IVP; Site: left forearm; rg5 14:13 Follow up: Response: No adverse reaction rg5 13:30 Drug: Droperidol IVP 2.5 mg IVP once Route: IVP; Site: left forearm; rg5 14:13 Follow up: Response: No adverse reaction rg5 Medication: 11:05 VIS not applicable for this client. me1 Intake: 13:00 IV: 1000ml; Total: 1000ml. rg5 Outcome: 13:58 Discharge ordered by MD. sb4 14:24 Discharged to home ambulatory, rg5 14:24 Condition: stable 14:24 Discharge instructions given to patient, Instructed on discharge instructions, follow up and referral plans. Demonstrated understanding of instructions, follow-up care, medications, Prescriptions given X 2, 14:25 Patient left the ED. rg5 Signatures: Dispatcher [employer] Susy Izaguirre RN RN ss Jordana Solorio, PA-C PA-C sb4 Dayami Fu Michelle, RN RN me1 Tao Beaver RN RN rg5 Lori Edwards 3 Corrections: (The following items were deleted from the chart) 10:46 10:43 Acuity: AMINATA 3 ss ss
--- NOTE | 2025-03-09 13:59 | EDPHYS ---
Physician Documentation [facility] Name: Shamika Alejandra Age: 49 yrs Sex: Female : 1975 Arrival Date: 03/09/2025 Time: 10:27 Bed 15 Private MD: ED Physician Paulino Schneider HPI: 03/09 11:07 This 49 yrs old Female presents to ER via Wheelchair with complaints of Headache, sb4 Nausea, Vomiting, Palpitations. 11:07 Patient reports migraine for 2 to 3 days now. Denies any relief with [id number] sb4 medication. Started having vomiting this morning. Blood pressure noted to be very elevated, denies any history of hypertension, only takes thyroid medication. Denies any history of migraines. Denies any trauma to her head. 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 - Infectious Disease History:: Denies. - Social history:: Smoking status: Patient denies any tobacco usage or history of. ROS: 11:07 Constitutional: Negative for fever, chills, and weight loss, sb4 11:07 Abdomen/GI: Positive for nausea and vomiting, 11:07 Neuro: Positive for headache, 11:07 All other systems are negative, Exam: 11:07 Head/Face: Normocephalic, atraumatic. Eyes: Extra-ocular motions intact. Periorbital sb4 areas with no swelling, redness, or edema. Cardiovascular: Regular rate and rhythm with a normal S1 and S2. Respiratory: No increased work of breathing, no retractions or nasal flaring. Abdomen/GI: Soft, non-tender, no distension. Skin: Warm, dry with normal turgor. Normal color with no rashes, no lesions, and no evidence of cellulitis. 11:07 Constitutional: The patient appears alert, awake, obviously ill, pale, uncomfortable, 11:07 ENT: Mouth: Oral mucosa: dry, Vital Signs: 10:43 BP 181 / 114; Pulse 78; Resp 16; Temp 97.9(O); Pulse Ox 100% on R/A; Weight 93.89 kg; ss Height 5 ft. 3 in. ; Pain 10/10; 11:45 BP 206 / 124; Pulse 85; Pulse Ox 97% ; Pain 7/10; rg5 12:00 BP 173 / 90; Pulse 80; Pulse Ox 98% ; rg5 13:32 BP 131 / 102; Pulse 81; Resp 18; Pulse Ox 100% ; rg5 14:00 BP 151 / 100; Pulse 94; Resp 18; Pulse Ox 98% ; rg5 10:43 Body Mass Index 36.67 (93.89 kg, 160.02 cm) ss 10:43 Pain Scale: Adult ss 11:45 Pain Scale: Adult rg5 Mita Coma Score: 11:08 Eye Response: spontaneous(4). Motor Response: obeys commands(6). Verbal Response: sb4 oriented(5). Total: 15. MDM: 10:30 Medical Screening Exam initiated sb4 11:08 Differential diagnosis: hypertensive headache, intracerebral hemorrhage, migraine, sb4 tension headache. 11:40 Independent interpretation of the following test(s) in the Emergency Department CT sb4 Scan: My interpretation is My interpretation of the head CT without contrast is no acute intracranial hemorrhage. 11:49 Independent interpretation of the following test(s) in the Emergency Department X-Ray: sb4 My interpretation is My interpretation of the chest x-ray images is no cardiomegaly or lobar consolidation. 13:37 Data reviewed: vital signs, nurses notes, lab test result(s), EKG, radiologic studies, sb4 and as a result, I will discharge patient. Counseling: I had a detailed discussion with the patient and/or guardian regarding the historical points, exam findings, and any diagnostic results supporting the discharge/admit diagnosis, the presence of at least one elevated blood pressure reading (>120/80) during this emergency department visit, lab results, radiology results, the need for outpatient follow up, for definitive care, to return to the emergency department if symptoms worsen or persist or if there are any questions or concerns that arise at home. 14:25 ED course: Patient reports feeling better, is requesting to be discharged. Her workup sb4 is unremarkable. Blood pressure has improved. I did recommend monitoring blood pressure daily and following up outpatient for possible daily antihypertensive medications. She understands is in agreement with plan. 03/09 10:53 Order name: Basic Metabolic Panel; Complete Time: 12:14 sb4 03/09 10:53 Order name: CBC with Diff; Complete Time: 13:25 sb4 03/09 10:53 Order name: Hepatic Function; Complete Time: 12:14 sb4 03/09 10:53 Order name: Magnesium; Complete Time: 12:14 sb4 03/09 10:53 Order name: Protime (+inr); Complete Time: 11:59 sb4 03/09 10:53 Order name: Ptt, Activated; Complete Time: 11:59 sb4 03/09 10:53 Order name: Troponin High Sensitivity; Complete Time: 12:14 sb4 03/09 10:53 Order name: UDS; Complete Time: 12:11 sb4 03/09 10:53 Order name: CT Head Brain wo Cont; Complete Time: 11:56 sb4 03/09 10:53 Order name: Chest Single View XRAY; Complete Time: 11:56 sb4 03/09 10:53 Order name: Cardiac monitoring; Complete Time: 11:59 sb4 03/09 10:53 Order name: EKG - Nurse/Tech; Complete Time: 11:59 sb4 03/09 10:53 Order name: IV Saline Lock; Complete Time: 11:59 sb4 03/09 10:53 Order name: Labs collected and sent; Complete Time: 11:59 sb4 03/09 10:53 Order name: O2 Per Protocol; Complete Time: 11:59 sb4 03/09 10:53 Order name: O2 Sat Monitoring; Complete Time: 11:59 sb4 03/09 13:10 Order name: PO challenge; Complete Time: 13:41 sb4 EC: Rate is 86 beats/min. Rhythm is regular, Normal Sinus Rhythm. KS interval is prolonged sb4 at 204 msec. QRS interval is normal at 86 msec. QT interval is normal at 364 msec. No Q waves. T waves are Normal. No ST changes noted. Clinical impression: No evidence of ischemia. Interpreted by me. Reviewed by me. Administered Medications: 11:49 Drug: NS 0.9% IV 1000 ml IV at 1000 ml once; to be given as a bolus over 60 minutes rg5 Route: IV; Rate: 1000 ml; Site: left forearm; 13:00 Follow up: IV Status: Completed infusion; IV Intake: 1000ml rg5 11:49 Drug: hydrALAZINE IVP 10 mg IVP once Route: IVP; Site: left forearm; rg5 14:14 Follow up: Response: No adverse reaction; Blood pressure is lowered rg5 11:49 Drug: diphenhydrAMINE IVP 25 mg IVP once Route: IVP; Site: left forearm; rg5 14:14 Follow up: Response: No adverse reaction rg5 11:49 Drug: metoCLOPramide IVP 10 mg IVP once; over 1 to 2 minutes Route: IVP; Site: left rg5 forearm; 14:14 Follow up: Response: No adverse reaction rg5 12:06 CANCELLED (Physician Discretion): [id number] mg IV at calculated rate once sb4 12:06 CANCELLED (Physician Discretion): clonidine0.2 mg PO once sb4 12:15 Drug: Ketorolac IVP 15 mg IVP once Route: IVP; Site: left forearm; rg5 14:13 Follow up: Response: No adverse reaction rg5 13:30 Drug: Droperidol IVP 2.5 mg IVP once Route: IVP; Site: left forearm; rg5 14:13 Follow up: Response: No adverse reaction rg5 Disposition: 03/10 09:10 Co-signature as Attending Physician, Paulino Schneider MD I agree with the assessment and andreas plan of care. Disposition Summary: 03/09/25 13:58 Discharge Ordered Notes: Location: Home sb4 Problem: an ongoing problem sb4 Symptoms: have improved sb4 Condition: Stable sb4 Diagnosis - Migraine without aura, not intractable sb4 - Elevated blood-pressure reading, without diagnosis of hypertension sb4 Followup: sb4 - With: Emergency Department - When: As needed - Reason: Worsening of condition Discharge Instructions: - Discharge Summary Sheet sb4 - Migraine Headache, [id number] sb4 - How to Take Your Blood Pressure, [id number] sb4 Forms: - Patient Portal Instructions sb4 - Leadership Thank You Letter sb4 Prescriptions: - Fioricet 50-300-40 mg Oral capsule - take 1 capsule ORAL route every 4 to 6 hours as needed for pain; 20 capsule; sb4 Refills: 0, Product Selection Permitted - Ibuprofen 800 mg Oral Tablet - take 1 tablet ORAL route every 8 hours As needed take with food; 30 tablet; sb4 Refills: 0, Product Selection Permitted Signatures: Dispatcher [employer] EDMS Paulino Schneider MD MD cha Blanchard, Shelby, RN RN Jordana Clemente PA-C PARosalba sb4 Rebeca Aviles, RN RN me1 Tao Beaver, CARIE RN rg5 Corrections: (The following items were deleted from the chart) 03/09 10:53 10:53 BASIC METABOLIC PANEL+C.LAB.BRZ ordered. EDMS EDMS 10:53 10:53 CBC+H.LAB.BRZ ordered. EDMS EDMS 10:53 10:53 HEPATIC FUNCTION+C.LAB.BRZ ordered. EDMS EDMS 10:53 10:53 MAGNESIUM+C.LAB.BRZ ordered. EDMS EDMS 10:53 10:53 PROTIME (+INR)+COAG.LAB.BRZ ordered. EDMS EDMS 10:53 10:53 PTT, ACTIVATED+COAG.LAB.BRZ ordered. EDMS EDMS 10:53 10:53 Troponin High Sensitivity+C.LAB.BRZ ordered. EDMS EDMS 10:53 10:53 URINE DRUG SCREEN+UC.LAB.BRZ ordered. EDMS EDMS 10:53 10:53 Head Brain Wo Cont+CT.RAD.BRZ ordered. EDMS EDMS 10:53 10:53 Chest Single View+RAD.RAD.BRZ ordered. EDMS EDMS 12:06 12:00 Labetalol IV 10 mg IV at calculated rate once ordered. sb4 sb4 12: 12:00 cloNIDine PO 0.2 mg PO once ordered. sb4 sb4
[2025-03-09 14:42] VITALS: TEMP 97.9
[2025-03-09 14:48] VITALS: BP 151/100; O2SAT 98
== END 2025-03-09 14:25 | disposition home or self-care (01) ==
LOC: ER 10:27
DX: G43.009 Migraine without aura, not intractable, without status migrainosus (principal); R03.0 Elevated blood-pressure reading, without diagnosis of hypertension; E06.3 Autoimmune thyroiditis
CPT/HCPCS: 96361; 93005; 85025; 80048; 36415; 83735; 85610; 80076; 85730; 84484; 80307; 70450; 71045; 96375; 96374; 99284; J0360; J2765; J1200; J1790; J7030